=== PATIENT | male | born 1980 | race Two or more races ===

== ENCOUNTER 2019-09-09 10:10 | Emergency (ER) | payer SELFPAY ==
[~2019-09-09] VITALS: Ht 185.4 cm; Wt 107.5 kg
--- NOTE | 2019-09-09 10:49 | NUR ---
EPIC DIRECTOR: PT TO ROOM FROM LOBBY GAIT SLOW AND STEADY
[2019-09-09 10:56] VITALS: BP 165/81
[2019-09-09 11:13] LABS: BASOPHILS # (AUTO) 0.04 x10^3/uL (0-0.1); BASOPHILS % (AUTO) 1 % (0-1); EOSINOPHILS # (AUTO) 0.09 x10^3/uL (0-0.4); EOSINOPHILS % (AUTO) 1 % (1-7); LYMPHOCYTES # (AUTO) 1.06 x10^3/uL (1-3.4); LYMPHOCYTES % (AUTO) 14 % (22-44); MD NO; MEAN CORPUSCULAR HEMOGLOBIN 32.1 pg (27.5-34.5); MEAN CORPUSCULAR HGB CONC 33.7 g/dL (33.2-36.2); MEAN CORPUSCULAR VOLUME 95.4 fL (81-97); MEAN PLATELET VOLUME 7.5 fL (7.4-10.4); MONOCYTES # (AUTO) 0.59 x10^3/uL (0.2-0.8); MONOCYTES % (AUTO) 8 % (2-9); NEUTROPHILS % (AUTO) 77 % (42-75); PLATELET COUNT 240 x10^3/uL (130-400); RED BLOOD COUNT 4.92 x10^6/uL (4.38-5.82)
--- NOTE | 2019-09-09 11:14 | NUR ---
TO ED FROM HOME S/O S.O. C/O DIARRHEA THAT STARTED LAST NIGHT "I'VE GONE LIKE 30 TIMES." C/O 10/01 ABD CRAMPING. SNT, BS NORMOACTIVE. LUNGS CTAB. C/O CHILLS. DENIES N/V/COUGH/CONGESTION. VSS. MOIST MUCUS MEMBRANES, GOOD CAP REFILL. C/O WEAKNESS. CALL CAMPOS IN REACH, LABS PENDING.
[2019-09-09 11:21] LABS: ALBUMIN 3.8 g/dL (3.4-5.0); ANION GAP 10 mmol/L (5-15); CALCIUM 8.2 mg/dL (8.5-10.1); CHLORIDE 107 mmol/L (98-107); CREATININE 0.84 mg/dL (0.7-1.3)
[2019-09-09] MEDS ORDERED: LOPERAMIDE 2 MG CAPSULE PO ONE (11:30)
[2019-09-09] MEDS ORDERED: LOPERAMIDE 2 MG CAPSULE ONE (11:38)
== END 2019-09-09 12:09 | disposition home or self-care (01) ==
LOC: ED 12:00
DX: R19.7 Diarrhea, unspecified (principal); F17.200 Nicotine dependence, unspecified, uncomplicated
CPT/HCPCS: 36415; 80048; 82040; 85025; 99283

== ENCOUNTER 2019-09-17 10:13 | Emergency (ER) | payer BC, OTHER ==
[~2019-09-17] VITALS: Ht 185.4 cm; Wt 107.7 kg
--- NOTE | 2019-09-17 11:10 | NUR ---
PT TO ED FROM WORK W/ BROTHER. C/O L SIDED INTERMITTENT CHEST PAIN 2/10, REPRODUCIBLE, NON RADIATING. C/O TINGLING FROM LEFT WRIST UP ARM, TINGLING L FACE, BACK OF HEAD, A LITTLE R FACE. HX ANXIETY. NSR ON MONITOR. BP STABLE. STS HAD SOB AND THEN THESE SX. LUNGS CTAB. VSS NOTED. ABD SNT, DENEIS N/V/D. A&OX4 GCS 15. CALM. DENIES CARDIAC HX. TOLD NOT TO EAT AND DRINK. PT EATING PEANUTS AFTER. KESHAV IN ROOM FOR EVAL. CALL CAMPOS IN REACH.
[2019-09-17] MEDS ORDERED: ASPIRIN 81 MG TABLET CHEW ONE (11:25)
[2019-09-17] MEDS ORDERED: ASPIRIN 81 MG TABLET CHEW PO ONE (11:30)
[2019-09-17 11:46] LABS: BASOPHILS # (AUTO) 0.08 x10^3/uL (0-0.1); BASOPHILS % (AUTO) 1 % (0-1); EOSINOPHILS # (AUTO) 0.13 x10^3/uL (0-0.4); EOSINOPHILS % (AUTO) 2 % (1-7); LYMPHOCYTES % (AUTO) 19 % (22-44); MD NO; MEAN CORPUSCULAR HEMOGLOBIN 31.6 pg (27.5-34.5); MEAN CORPUSCULAR HGB CONC 33.5 g/dL (33.2-36.2); MEAN CORPUSCULAR VOLUME 94.3 fL (81-97); MEAN PLATELET VOLUME 7.5 fL (7.4-10.4); MONOCYTES # (AUTO) 0.58 x10^3/uL (0.2-0.8); MONOCYTES % (AUTO) 7 % (2-9); NEUTROPHILS # (AUTO) 6.37 x10^3/uL (1.8-6.8); NEUTROPHILS % (AUTO) 72 % (42-75); PLATELET COUNT 373 x10^3/uL (130-400); RED BLOOD COUNT 4.62 x10^6/uL (4.38-5.82); RED CELL DISTRIBUTION WIDTH 12.9 % (9.4-14.8)
[2019-09-17 11:55] LABS: ALBUMIN 3.9 g/dL (3.4-5.0); ANION GAP 9 mmol/L (5-15); CALCIUM 8.7 mg/dL (8.5-10.1); CHLORIDE 103 mmol/L (98-107)
[2019-09-17 12:01] LABS: ALANINE AMINOTRANSFERASE 38 U/L (12-78); ALKALINE PHOSPHATASE 133 U/L (45-117); BILIRUBIN,TOTAL 0.5 mg/dL (0.2-1.0); CREATININE 1.01 mg/dL (0.7-1.3); TOTAL PROTEIN 7.9 g/dL (6.4-8.2); TROPONIN I < 0.015 ng/mL (0.000-0.045)
[2019-09-17] MEDS ORDERED: POTASSIUM CHLORIDE 20 MEQ TAB.ER.PRT ONE (12:20)
[2019-09-17 12:22] VITALS: BP 129/79
[2019-09-17] MEDS ORDERED: POTASSIUM CHLORIDE 20 MEQ TAB.ER.PRT PO ONE (12:30)
== END 2019-09-17 12:41 | disposition home or self-care (01) ==
LOC: ED 12:21
DX: F41.1 Generalized anxiety disorder (principal); R06.00 Dyspnea, unspecified; R07.89 Other chest pain; F17.210 Nicotine dependence, cigarettes, uncomplicated
CPT/HCPCS: 36415; 71045; 80053; 83605; 84484; 85025; 93005; 99284

== ENCOUNTER 2020-09-10 21:09 | Emergency (ER) | payer BC ==
[~2020-09-10] VITALS: Ht 185.4 cm; Wt 107.8 kg
[2020-09-10 21:11] VITALS: BP 147/77
--- NOTE | 2020-09-10 21:19 | NUR ---
INITIAL PT CONTACT. PT PRESENT TO ED C/O LEFT ELBOW PAIN, REDNESS, SWELLING AND INCREASED WARMTH X2 DAYS. "I DONT KNOW, I COULDVE BEEN BIT BY A SPIDER OR SOMETHING, BUT I DONT SEE A WOUND OR ANYTHING. I DID HAVE A CYST DRAINED IN MY ARMPIT ON THE SAME SIDE EARLIER THIS WEEK, MAYBE THATS RELATED". LEFT ELBOW NOTED TO BE SWOLLEN, TENDER TO PALPATION, REDNESS AND WARMTH TO THE AREA. PT SITTING UPRIGHT ON SARA WALKER, VSMadelyn. PT DENIES ANY NEEDS AT THIS TIME. CALL LIGHT AND PERSONAL BELONGINGS WITHIN REACH.
--- NOTE | 2020-09-10 21:30 | NUR ---
ERP AT BEDSIDE
--- NOTE | 2020-09-10 21:41 | NUR ---
Patient/Caregiver given discharge instructions and they have confirmed that they understand the instructions. Patient ambulatory with steady gait.
== END 2020-09-10 21:44 | disposition home or self-care (01) ==
LOC: ED 21:38
DX: M70.22 Olecranon bursitis, left elbow (principal); F17.200 Nicotine dependence, unspecified, uncomplicated
CPT/HCPCS: 99283

== ENCOUNTER 2020-09-15 13:46 | Emergency (ER) | payer BC ==
[~2020-09-15] VITALS: Ht 185.4 cm; Wt 106.1 kg
--- NOTE | 2020-09-15 14:03 | NUR ---
PT BROUGHT BACK FROM TRIAGE WITH CHIEF COMPLAINT OF LEFT ELBOW/ARM PAIN. HERE TUESDAY FOR BURSITIS.
[2020-09-15] MEDS ORDERED: CEFTRIAXONE 1,000 MG IM ONE (14:30)
[2020-09-15 14:44] LABS: BASOPHILS % (AUTO) 1 % (0-1); EOSINOPHILS % (AUTO) 2 % (1-7); LYMPHOCYTES % (AUTO) 24 % (22-44); MEAN CORPUSCULAR HEMOGLOBIN 31.5 pg (27.5-34.5); MEAN CORPUSCULAR HGB CONC 34.4 g/dL (33.2-36.2); MONOCYTES % (AUTO) 7 % (2-9); NEUTROPHILS % (AUTO) 66 % (42-75); PLATELET COUNT 407 x10^3/uL (130-400); RED BLOOD COUNT 4.16 x10^6/uL (4.38-5.82)
[2020-09-15 14:45] LABS: MD NO
[2020-09-15] MEDS ORDERED: CEFTRIAXONE 1,000 MG ONE (14:52)
[2020-09-15] MEDS ORDERED: HYDROcodone/APAP 5/325 TABLET ONE (14:52)
[2020-09-15] MEDS ORDERED: LIDOCAINE-MPF 1%, 2ML ONE (14:55)
[2020-09-15] MEDS ORDERED: HYDROcodone/APAP 5/325 TABLET PO ONE (15:00)
--- NOTE | 2020-09-15 15:21 | NUR ---
PT resting in bed, call light in reach.
[2020-09-15 15:34] VITALS: BP 139/92
--- NOTE | 2020-09-15 16:02 | NUR ---
dc instructions reviewed
== END 2020-09-15 16:04 | disposition home or self-care (01) ==
LOC: ED 15:48
DX: M71.122 Other infective bursitis, left elbow (principal); L03.114 Cellulitis of left upper limb
CPT/HCPCS: 36415; 73080; 85025; 96372; 99284; J0696; 99285

== ENCOUNTER 2021-04-21 11:23 | Emergency (ER) | payer BC, OTHER ==
[~2021-04-21] VITALS: Ht 185.4 cm; Wt 106.3 kg
--- NOTE | 2021-04-21 12:05 | NUR ---
[employer]: PT PLACED ON OXYGEN 4L VIA NC. OXYGEN 94%
[2021-04-21 12:24] LABS: BASOPHILS % (AUTO) 1 % (0-1); EOSINOPHILS % (AUTO) 0 % (1-7); LYMPHOCYTES % (AUTO) 21 % (22-44); MEAN CORPUSCULAR HEMOGLOBIN 31.1 pg (27.5-34.5); MEAN CORPUSCULAR HGB CONC 33.9 g/dL (33.2-36.2); MEAN PLATELET VOLUME 7.8 fL (7.4-10.4); MONOCYTES % (AUTO) 9 % (2-9); NEUTROPHILS % (AUTO) 69 % (42-75); PLATELET COUNT 250 x10^3/uL (130-400); RED CELL DISTRIBUTION WIDTH 12.8 % (9.4-14.8)
[2021-04-21 12:33] LABS: ALBUMIN 3.3 g/dL (3.4-5.0); ANION GAP 7 mmol/L (5-15); CALCIUM 8.7 mg/dL (8.5-10.1); CHLORIDE 97 mmol/L (98-107)
[2021-04-21 12:36] LABS: ALANINE AMINOTRANSFERASE 48 U/L (12-78); ALKALINE PHOSPHATASE 123 U/L (45-117); BILIRUBIN,TOTAL 0.6 mg/dL (0.2-1.0); CREATININE 1.01 mg/dL (0.7-1.3); TOTAL PROTEIN 8.9 g/dL (6.4-8.2)
[2021-04-21 14:19] VITALS: BP 110/74
--- NOTE | 2021-04-21 14:20 | NUR ---
PT MAINTAINED SAT 92%-94% W/ AMBULATION. DENIES SOB/DIZZINESS/CP
[2021-04-21] MEDS ORDERED: DEXAMETHASONE 4 MG TABLET PO ONE (14:30)
[2021-04-21] MEDS ORDERED: DEXAMETHASONE 4 MG TABLET ONE (14:53)
--- NOTE | 2021-04-21 15:01 | NUR ---
Patient given discharge instructions and they have confirmed that they understand the instructions. Patient ambulatory with steady gait.
== END 2021-04-21 15:02 | disposition home or self-care (01) ==
LOC: ED 15:00
DX: U07.1 COVID-19 (principal); J18.0 Bronchopneumonia, unspecified organism
CPT/HCPCS: 36415; 71045; 80053; 85025; 93005; 99285; U0003; U0005